=== PATIENT | female | born 1985 | race Hispanic/Latino ===

== ENCOUNTER 2020-02-28 01:32 | Emergency (ER) | payer MEDICAID ==
[2020-02-28] MEDS ORDERED: FAMOTIDINE 20 MG TAB PO ONE (02:57)
--- NOTE | 2020-02-28 02:59 | Emergency Department Report ---
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 She was at an outpatient restaurant, was given a drink that had [place] in it, in spite of the patient asking for no [place] and shortly thereafter, developed a sensation of throat tightness. She took Benadryl, and this resolved her symptoms. This started approximately 3 hours ago. The patient has no additional injuries or complaints. She states all of her symptoms are resolved. Of note, she is approximately 25 weeks , and had an outpatient care evaluation with her private [facility] doctor 3 days ago, which she states was within normal limits, and unremarkable. She endorses readiness for discharge at this time. -: Sudden Consistency: now resolved Improves with: medication Worsens with: none Associated Symptoms: denies other symptoms - Related Data Previous Rx's Medication Instructions Recorded Last Taken Type EPINEPHrine [Epipen 2-Luis] 0.3 mg IM DAILY PRN #2 ml 02/28/20 Unknown Rx Famotidine [Pepcid] 20 mg PO BID #10 tablet 02/28/20 Unknown Rx diphenhydrAMINE [Benadryl] 50 mg PO Q8HR PRN #20 capsule 02/28/20 Unknown Rx ED Review of Systems ROS: Stated complaint: ALLERGIC REACTION Other details as noted in HPI Comment: All other systems reviewed and negative ED Past Medical Hx - Past Medical History Previous Medical History?: No - Surgical History Past Surgical History?: Yes Additional Surgical History: C-Sec, D&C - Social History Smoking Status: Former Smoker Substance Use Type: None - Medications Home Medications: Home Medications Medication Instructions Recorded Confirmed Last Taken Type EPINEPHrine [Epipen 2-Luis] 0.3 mg IM DAILY PRN #2 ml 02/28/20 Unknown Rx Famotidine [Pepcid] 20 mg PO BID #10 tablet 02/28/20 Unknown Rx diphenhydrAMINE [Benadryl] 50 mg PO Q8HR PRN #20 capsule 02/28/20 Unknown Rx ED Physical Exam - General Limitations: No Limitations General appearance: alert, in no apparent distress - Head Head exam: Present: atraumatic, normocephalic - Eye Eye exam: Present: normal appearance, EOMI. Absent: nystagmus - ENT ENT exam: Present: normal exam, normal orophraynx, mucous membranes moist, normal external ear exam, other (Patient is speaking in full sentences. There is no stridor or dysphonia. The tongue is midline. The uvula is midline.) - Neck Neck exam: Present: normal inspection, full ROM. Absent: tenderness, meningismus - Respiratory Respiratory exam: Present: normal lung sounds bilaterally. Absent: respiratory distress - Cardiovascular Cardiovascular Exam: Present: regular rate, normal rhythm, normal heart sounds. Absent: bradycardia, tachycardia, irregular rhythm, systolic murmur, diastolic murmur, rubs, gallop - GI/Abdominal GI/Abdominal exam: Present: soft, other (Uterus is consistent with date). Ab sent: distended, tenderness, guarding, rebound, rigid, pulsatile mass - Extremities Exam Extremities exam: Present: normal inspection, full ROM, other (2+ pulses noted in the bilateral upper extremities. There is no long bony tenderness. The pelvis is stable. Muscular compartments are soft.). Absent: pedal edema, calf tenderness - Back Exam Back exam: Present: normal inspection, full ROM. Absent: tenderness, CVA tenderness (R), CVA tenderness (L), paraspinal tenderness, vertebral tenderness - Neurological Exam Neurological exam: Present: alert, normal gait, other (No facial droop. Tongue midline. Extraocular movements intact bilaterally. Facial sensation intact to light touch in V1, V2, V3 distribution bilaterally. 5 and a 5 strength in 4 extremities. Sensation intact to light touch in 4 extremities.). Absent: motor sensory deficit - Psychiatric Psychiatric exam: Present: normal affect, normal mood - Skin Skin exam: Present: warm, dry, intact, normal color. Absent: rash ED Medical Decision Making - Lab Data Vital Signs 02/28/20 01:37 Temperature 99.2 F Pulse Rate 82 Respiratory 14 Rate Blood Pressure 107/64 O2 Sat by Pulse 98 Oximetry - Medical Decision Making Differential diagnosis, including but not limited to: Allergic reaction, food intolerance Assessment and plan: 34-year-old female with a known history of citrus allergy who was served citrus at an outside restaurant by her history, with mild throat discomfort, now resolved with Benadryl, provided prior to emergency room evaluation. The patient is afebrile with reassuring vital signs, speaking in complete sentences, without stridor, or dysphonia, and she is resting comfortabl y in her stretcher, and in no acute distress. Her physical examination is benign and unremarkable. Patient feels comfortable and safe to go home. I did offer the patient the opportunity to go to our labor and delivery floor as she reports that she is 25 weeks , but she is declined to do this, and indicates that she will follow-up with her outpatient [facility] shortly. In addition, she is not offered any obstetrics complaint at this time, and had an outpatient visit with her [facility]ATION SPECIALIST this past week. Critical care attestation.: If time is entered above; I have spent that time in minutes in the direct care of this critically ill patient, excluding procedure time. ED Disposition Clinical Impression: History of food allergy Disposition: [id number] TO HOME OR SELFCARE Is pt being admited?: No Does the pt Need Aspirin: No Condition: Stable Instructions: Food Allergy (ED) Additional Instructions: Please continue current outpatient medications. Follow-up with your outpatient [facility] provider as scheduled. Avoid consumption of citrus and [place] Patient may take Benadryl as needed, Pepcid as needed. Use epinephrine pen only if patient develops inability to speak, inability to breathe, throat tightness and closing. If any of these symptoms develop, please contact emergency medical services and return to the emergency room right away. Please return to the emergency room right away with new pain, worsening pain, migration of pain, rectal vomiting, change in mental status, confusion, inability to tolerate liquid feeds, new, worsened or different symptoms not pr esent on the initial emergency room evaluation. Referrals: PRIMARY CARE, [Primary Care Provider] - 3-5 Days
[2020-02-28 03:03] VITALS: BP 101/63
== END 2020-02-28 03:18 | disposition home or self-care (01) ==
LOC: ED 01:32
DX: O26.892 Other specified pregnancy related conditions, second trimester (principal); Z91.018 Allergy to other foods; Z3A.25 25 weeks gestation of pregnancy